=== PATIENT | female | born 1980 | race Caucasian/White ===

== ENCOUNTER 2016-04-10 18:24 | Emergency (ER) | payer OTHER ==
[2016-04-10] MEDS ORDERED: FAMOTIDINE 20 MG TAB PO ONE (18:48)
[2016-04-10] MEDS ORDERED: DEXAMETHASONE 10 MG/ML VIAL PO ONE (18:48)
--- NOTE | 2016-04-10 18:52 | EDPHY ---
H & P Time Seen by Provider: 04/10/16 18:49 HPI/ROS: HPI: 36-year-old female presents to emergency department with chief concern allergic reaction. Reports onset of hives, throat tingling and swelling at 2: 00 p.m. just after ingesting 1.5 tsp of bee pollen. Took 75 mg of Benadryl at 4 :30 p.m. with some improvement. Had an episode of transient nausea that resolved. Continues to have hives and throat tingling so presents to emergency department. Denies dizziness, dysphagia, shortness of breath, chest pain, abdominal pain, vomiting, diarrhea. Allergy to shrimp. ROS:10 point review of systems is negative other than as stated in HPI Past Medical/Surgical History: Allergy to shrimp Social History: Lives in [place] Smoking Status: Current every day smoker Physical Exam: Temp 36.6, heart rate 92, respiratory rate 18, blood pressure 126/80, 99% on room air General: Awake, alert, calm, cooperative. No acute distress. Head: Normalocephalic. Atraumatic. EENT: PERRLA. EOMI. No pallor or injection. Anicteric. No nystagmus. No injection. TMs intact bilaterally with normal landmarks. No rhinnorhea, nasal passages clear. Oropharynx without erythema, swelling, or lesions. Neck: Supple, nontender. No lymphadenopathy. Full range of motion. No meningismus. Respiratory: Breathing unlabored. Breath sounds equal bilaterally and clear to auscultation. No adventitious sounds. CV: Chest nontender, atraumatic. Heart rate regular. No murmur, distal pulses 2+ bilaterally. Brisk cap refill all extremities. GI: Abdomen soft, nontender. Bowel sounds normoactive and positive x4 quadrants. Neuro: Alert. Oriented x 3. Speech clear. Nonfocal cranial nerves throughout. Sensation intact all extremities. Skin: Skin warm, dry, intact. 0.5 cm to 1 cm erythematous generalized papular lesions scattered about the arms, legs, trunk Extremities: Full range of motion in all 4 extremities. Strength 5+ all extremities. Constitutional: Initial Vital Signs Temperature (C) 36.6 C 04/10/16 18:28 Heart Rate 92 04/10/16 18:28 Respiratory Rate 18 04/10/16 18:28 Blood Pressure 126/80 H 04/10/16 18:28 O2 Sat (%) 99 04/10/16 18:28 O2 Delivery Mode Room Air Allergies/Adverse Reactions: acetaminophen [From Vicodin] Allergy (Verified 04/10/16 18:27) azithromycin Allergy (Verified 04/10/16 18:27) Cephalosporins Allergy (Verified 04/10/16 18:27) ciprofloxacin [From Cipro] Allergy (Verified 04/10/16 18:27) ciprofloxacin HCl [From Cipro] Allergy (Verified 04/10/16 18:27) erythromycin base Allergy (Verified 04/10/16 18:27) hydrocodone bitartrate [From Vicodin] Allergy (Verified 04/10/16 18:27) Milk Containing Products [dairy] Allergy (Verified 04/10/16 18:27) naproxen Allergy (Verified 04/10/16 18:27) Penicillins Allergy (Verified 04/10/16 18:27) prednisone Allergy (Verified 04/10/16 18:27) shrimp Allergy (Verified 04/10/16 18:27) Sulfa (Sulfonamide Antibiotics) Allergy (Verified 04/10/16 18:27) Home Medications: Medication Instructions Recorded MIRENA 03/08/16 Medical Decision Making ED Course/Re-evaluation: 36-year-old female presents to the emergency department with chief concern allergic reaction. Reports throat pain and swelling after ingesting 1.5 tsp bee pollen. Developed an urticarial rash. Took 75 mg of Benadryl with some relief. Here in emergency department given 20 mg of Pepcid orally, 12 mg of Decadron orally. 1935: Throat tingling has resolved. Urticarial Rash significantly improved, less pruritic. Patient requesting to be discharged. She is stable for discharge. Vitals stable. Differential Diagnosis: Angioedema, urticaria, allergic reaction, anaphylaxis - Data Points Medications Given: Discontinued Medications Dexamethasone (Decadron Injection) 12 mg PO EDNOW ONE Stop: 04/10/16 18:49 Last Admin: 04/10/16 18:58 Dose: 12 mg Famotidine (Pepcid) 20 mg PO EDNOW ONE Stop: 04/10/16 18:49 Last Admin: 04/10/16 18:58 Dose: 20 mg Departure - Departure Disposition: Home, Routine, Self-Care Clinical Impression: Allergic reaction Condition: Good Instructions: General Allergic Reaction (ED) Additional Instructions: Plan: Take 20 mg Pepcid daily while symptoms persist May use [id number] Zyrtec or Claritin in the morning 25-50 mg of Benadryl at bedtime as needed Follow up with primary care later this week, or return here for worsening symptoms despite treatment plan Referrals: Deedee Willett MD [Primary Care Provider] - As per Instructions
[2016-04-10] MEDS ORDERED: DEXAMETHASONE 4 MG TAB ONE (18:53)
[2016-04-10 19:42] VITALS: BP 130/84; PULSE 64; RESP 14; TEMP 98.4; O2SAT 98
== END 2016-04-10 19:42 | disposition home or self-care (01) ==
DX: L50.0 Allergic urticaria (principal); F17.200 Nicotine dependence, unspecified, uncomplicated